=== PATIENT | male | born 1955 | race Caucasian/White ===

== ENCOUNTER 2021-01-11 15:31 | Emergency (ER) | payer OTHER, MEDICARE ==
[~2021-01-11] VITALS: Ht 172.7 cm; Wt 99.8 kg
--- NOTE | 2021-01-12 18:55 | EKG ---
[facility] [address] [facility] [place] [address] Signed Normal sinus rhythm Possible Anterior infarct , age undetermined Abnormal ECG Confirmed by GRICELDA AGUILERA MD ([id number]) on 01/12/2021 6:55:42 PM Electronically Signed By: GRICELDA AGUILERA MD 01/12/211854 PATIENT NAME: FLY BYRD Electrocardiogram DATE OF : 55 PHYSICIAN: GRICELDA AGUILERA MD REPORT #: [id number] REPORT IS CONFIDENTIAL AND NOT TO BE RELEASED WITHOUT AUTHORIZATION
== END 2021-01-11 18:08 | disposition home or self-care (01) ==
LOC: ED 15:31
DX: R07.89 Other chest pain (principal); M54.12 Radiculopathy, cervical region; J45.909 Unspecified asthma, uncomplicated; Z91.041 Radiographic dye allergy status
CPT/HCPCS: 71045; 80053; 83735; 84484; 85025; 85379; 93005; 93010; 99285-25

== ENCOUNTER 2022-04-10 14:44 | Emergency (ER) | payer OTHER, MEDICARE ==
[~2022-04-10] VITALS: Ht 172.7 cm; Wt 107.5 kg
[2022-04-10] MEDS ORDERED: GABAPENTIN100 MG PO (15:45)
--- NOTE | 2022-04-10 18:45 | EKG ---
[facility] [address] [facility] [place] [address] Signed Normal sinus rhythm Low voltage QRS Abnormal QRS-T angle, consider primary T wave abnormality Abnormal ECG When compared with ECG of 11-JAN-2021 15:40, T wave amplitude has decreased in Inferior leads Confirmed by GRICELDA AGUILERA MD ([id number]) on 04/10/2022 6:45:40 PM Electronically Signed By: GRICELDA AGUILERA MD 04/10/22 1845 PATIENT NAME: FLY BYRD Electrocardiogram DATE OF : 55 PHYSICIAN: GRICELDA AGUILERA MD REPORT #: [id number] REPORT IS CONFIDENTIAL AND NOT TO BE RELEASED WITHOUT AUTHORIZATION
== END 2022-04-10 16:45 | disposition home or self-care (01) ==
LOC: ED 14:44
DX: R00.2 Palpitations (principal); J45.909 Unspecified asthma, uncomplicated; Z91.041 Radiographic dye allergy status
CPT/HCPCS: 93005; 93010; 99284-25

== ENCOUNTER 2024-02-11 13:52 | Emergency (ER) | payer OTHER ==
[~2024-02-11] VITALS: Ht 172.7 cm; Wt 110.0 kg
[~2024-02-11 13:52] MED LIST: GABAPENTIN100 MG PO
[2024-02-11] MEDS ORDERED: TADALAFIL20 MG PO (16:31)
[2024-02-11] MEDS ORDERED: SODIUM CHLORIDE 0.9% 1,000 ML IV ONE (17:15)
[2024-02-11] MEDS ORDERED: ondansetron HCL 4 MG/2 ML VIAL IV ONE (17:15)
[2024-02-11] MEDS ORDERED: HYDROmorphone HCL 1 MG/ML SYR IV ONE (17:15)
[2024-02-11 17:26] LABS: BASOPHILS 0.5 % (0-2); EOSINOPHILS 1.2 % (0-6); HEMATOCRIT 42.7 % (35.0-50.0); HEMOGLOBIN 14.5 g/dL (12.0-18.0); LYMPHOCYTES 22.5 % (24-44); MCH 31.4 (27-36); MCHC 34.1 g/dl (30-36); MCV 92.2 fl (81-99); MONOCYTES 7.9 % (0-12); NEUTROPHILS 67.9 % (39-80); PLATELET COUNT 241 K/uL (140-440); RBC 4.63 M/ul (4.3-5.7); RDW 13.2 (10.5-15.0)
[2024-02-11 17:34] LABS: BILIRUBIN, URINE NEGATIVE (negative); BLOOD/HGB, URINE NEGATIVE (Negative); KETONE, URINE NEGATIVE (Negative); LEUK ESTERASE, URINE NEGATIVE (negative); NITRITE, URINE NEGATIVE (negative)
[2024-02-11 17:37] LABS: INR 1.08 (0.80-1.30); PROTIME 13.3 Sec (11.2-14.2)
[2024-02-11 17:41] LABS: ALBUMIN 3.5 g/dL (3.4-5.0); ALBUMIN/GLOBULIN RATIO 0.88 (1.1-2.4); ANION GAP 12.1 (7-21); BILIRUBIN, TOTAL 0.9 ng/dL (0.2-1.0); BUN/CREATININE RATIO 10.86 (6.0-28.6); CREATININE, SERUM 0.92 mg/dL (0.70-1.30); POTASSIUM 4.1 mmol/L (3.5-5.1); PROTEIN, TOTAL 7.5 g/dL (6.4-8.2)
[2024-02-11] MEDS ORDERED: HYDROCODON-ACE1 EA10 PO (19:23)
[2024-02-11] MEDS ORDERED: HYDROCODONE BIT/ACETAMINOPHEN 5/325 MG 1 TAB HOME.PACK PO ONE (19:45)
[2024-02-11 19:48] VITALS: BP 156/84
--- NOTE | 2024-02-12 11:46 | EKG ---
[facility] [address] [facility] [place] [address] Signed Sinus bradycardia Otherwise normal ECG When compared with ECG of 10-APR-2022 14:47, Nonspecific T wave abnormality no longer evident in Lateral leads Confirmed by Judy Troy ([id number]) on 02/12/2024 11:45:40 AM Electronically Signed By: JUDY TROY MD 02/12/24 1146 PATIENT NAME: FLY BYRD Electrocardiogram DATE OF : 55 PHYSICIAN: JUDY TROY MD REPORT #: [id number] REPORT IS CONFIDENTIAL AND NOT TO BE RELEASED WITHOUT AUTHORIZATION
== END 2024-02-11 19:57 | disposition home or self-care (01) ==
LOC: ED 13:52
PROVIDERS: Emergency Medicine
DX: S22.20XA Unspecified fracture of sternum, initial encounter for closed fracture (principal); S50.12XA Contusion of left forearm, initial encounter; S80.12XA Contusion of left lower leg, initial encounter; V43.54XA Car driver injured in collision with van in traffic accident, initial encounter; Z91.041 Radiographic dye allergy status; Z79.899 Other long term (current) drug therapy
CPT/HCPCS: 36415; 71250; 73560; 74176; 80053; 81003; 83690; 84484; 85025; 85610; 85730; 93005; 93010; 96374; 96375; 99284-25; A9270; J1170; J2405; J7030

== ENCOUNTER 2024-03-29 06:21 | Day surgery (SDC) | payer OTHER ==
[~2024-03-29] VITALS: Ht 172.7 cm; Wt 115.0 kg
[~2024-03-29 06:21] MED LIST changes: +GABAPENTIN ER300 MG PO; +HYDROCODON-ACE1 EA10 PO; +MIDAZOLAM HCL 5 MG/5 ML VIAL IV PRN; +PRILOSEC OTC20 MG PO; +TADALAFIL20 MG PO; +fentaNYL citrate 100 MCG/2 ML VIAL IV PRN
[2024-03-29 06:34] VITALS: BP 149/88
[2024-03-29] MEDS ORDERED: ASPIRIN81 MG PO (06:39)
[2024-03-29] MEDS ORDERED: LACTATED RINGER'S 1,000 ML IV SCH (07:00)
[2024-03-29] MEDS ORDERED: LIDOCAINE HCL 1% 5 ML SDV INJ ONE (07:00)
[2024-03-29] MEDS ORDERED: IBLOOD GLUCOSE TEST STRIP 1 EA TEST VI PRN (07:00)
[2024-03-29] MEDS ORDERED: fentaNYL citrate 100 MCG/2 ML VIAL ONE (07:14)
[2024-03-29] MEDS ORDERED: MIDAZOLAM HCL 5 MG/5 ML VIAL ONE (07:14)
--- NOTE | 2024-03-29 07:18 | NUR ---
VISITED DURING SPIRITUAL CARE ROUNDS. PT IN GOOD SPIRITS, NO SIGNS OF ANXIETY PRESENT. SALVAGE ENGINEER PROVIDED SUPPORTIVE PRESENCE, HOSPITALITY, PRAYER, FACILITATED INTERACTION WITH THERAPY ANIMAL. PT EXPRESSED GRATITUDE.
--- NOTE | 2024-03-29 07:59 | NUR ---
03/29/24 0759 GOYO MELISSA 0749 PT ARRIVED TO PACU VIA STRECHER. REPORT TAKEN FROM CINTIA SLADE. PT BREATHING EQUAL AND UNLBAORED. PT ON 2L OF OXYGEN VIA NASAL CANULLA. PT ABLE TO ANSWER QUESTIONS AND PT REPORTS NOT BEING IN PAIN. ALL MONITORS ATTACHED. PT RESTING WITH EYES CLOSED.
[2024-03-29 08:28] VITALS: BP 159/85
--- NOTE | 2024-03-29 09:56 | OR ---
[facility] [address] [place], [place] [address] Signed DATE OF OPERATION: 03/29/2024 SURGEON: Monty Valentino MD PREOPERATIVE DIAGNOSES: 1. Personal history of colonic polyps at age 40 in 1995. 2. Hemorrhoids. 3. Diverticulosis. POSTOPERATIVE DIAGNOSES: 1. 5 mm sessile polypoid lesion at 80 cm (left colon). 2. Minimal sigmoid diverticulosis. 3. Rqyuapk-ad-hzqyumwl internal and external hemorrhoids. PROCEDURE: Colonoscopy with hot biopsy. ESTIMATED BLOOD LOSS: None. INDICATIONS: Fly is a 68-year-old gentleman, asked to see me for a followup colonoscopy. He started colonoscopies at the age of 40. He said he had polyps removed on his very first colonoscopy in 1995. However, he has had no polyps since that time. He talks about hemorrhoids. He is fairly certain he has diverticulosis. He has no family history of colon cancer or polyps. He had lived in the [place] area for many years and now moved out to [place], [place]. He also went and had a cardiac evaluation recently, which we reviewed and he did very well. He said he has no lower GI complaints. In the office, I gave him a pamphlet on colonoscopy. We had reviewed the nature of the test. There is risk including, but not limited to gas bloating, crampy abdominal pain, bleeding, perforation requiring surgery, and missed diagnosis. We also reviewed the need for IV conscious sedation. He had expressed understanding and wished to proceed. PROCEDURE IN DETAIL: Fly was taken into our endoscopy suite and placed in the left lateral decubitus position. He used 5 mg of Versed and 100 mcg of fentanyl. He was awake a couple of times during the procedure, so we paused and gave him a little additional sedation. A digital rectal exam was performed. He does have some external hemorrhoid tissue. He had good sphincter tone. There were no masses. The adult colonoscope had been introduced and advanced under direct visualization of camera into the cecum itself. His Electronically Signed By: MONTY VALENTINO MD 03/29/24 0956 PATIENT NAME: FLY BYRD OPERATIVE REPORT DATE OF : 55 REPORT #: [id number] PHYSICIAN: MONTY VALENTINO MD PCP: DEVANTE LANTIGUA MD REPORT IS CONFIDENTIAL AND NOT TO BE RELEASED WITHOUT AUTHORIZATION [facility] [address] [place], [place] [address] Signed prep was quite good. We could easily see the appendiceal orifice and ileocecal valve. The scope was slowly withdrawn. At 80 cm, he had a sessile polypoid lesion that did not have the classic yellow discoloration. We turned on our narrow band imaging and it did not appear to be a polyp either. With just two bites of the hot biopsy forceps. We destroyed that lesion completely and sent off that tissue for pathologic review. He does have some diverticula in the sigmoid colon. They were moderate in size, few in number and scattered about. The rectum was unremarkable. Upon retroflexion of scope he does have minimal to moderate internal hemorrhoid columns. After this, the gas was suctioned out and colonoscope removed. Fly tolerated the procedure quite well. RECOMMENDATIONS: I will see Fly back in my office in 7 to 14 days to review his results. Based on his personal history of colonic polyps it looks like he will be on the five year plan. MD MAILE Mishra/MODL /[id number] cc: MD Devante Msihra MD Copies: MONTY VALENTINO MD, DELWYN MD ~ Electronically Signed By: MONTY VALENTINO MD 03/29/24 0956 PATIENT NAME: FLY BYRD OPERATIVE REPORT DATE OF : 55 REPORT #: [id number] PHYSICIAN: MONTY VALENTINO MD PCP: DEVANTE LANTIGUA MD REPORT IS CONFIDENTIAL AND NOT TO BE RELEASED WITHOUT AUTHORIZATION
== END 2024-03-29 08:37 | disposition home or self-care (01) ==
LOC: DS 06:21
PROVIDERS: ATTEND Colon & Rectal Surgery
PROC: 0DBM8ZX Excision of Descending Colon, Via Natural or Artificial Opening Endoscopic, Diagnostic (ICD-10-PCS; principal; 2024-03-29 07:30)
DX: Z12.11 Encounter for screening for malignant neoplasm of colon (principal); K63.5 Polyp of colon; K57.30 Diverticulosis of large intestine without perforation or abscess without bleeding; K64.4 Residual hemorrhoidal skin tags; K64.8 Other hemorrhoids; K21.9 Gastro-esophageal reflux disease without esophagitis; G43.909 Migraine, unspecified, not intractable, without status migrainosus; E66.9 Obesity, unspecified; Z68.38 Body mass index [BMI] 38.0-38.9, adult; Z86.0100 Personal history of colon polyps, unspecified; Z79.899 Other long term (current) drug therapy; Z88.5 Allergy status to narcotic agent; Z91.030 Bee allergy status; Z91.041 Radiographic dye allergy status
CPT/HCPCS: 88305; 99153; G0500; J2250; J3010; J7121

== ENCOUNTER 2024-04-17 16:47 | Emergency (ER) | payer OTHER ==
[~2024-04-17] VITALS: Ht 172.7 cm; Wt 113.9 kg
[~2024-04-17 16:47] MED LIST changes: +ASPIRIN81 MG PO; -MIDAZOLAM HCL 5 MG/5 ML VIAL IV PRN; -fentaNYL citrate 100 MCG/2 ML VIAL IV PRN
[2024-04-17] MEDS ORDERED: CYCLOBENZAPRINE10 MG PO (20:18)
[2024-04-17 20:47] VITALS: BP 137/83
== END 2024-04-17 20:49 | disposition home or self-care (01) ==
LOC: ED 16:47
DX: M79.662 Pain in left lower leg (principal); Z88.5 Allergy status to narcotic agent; Z91.030 Bee allergy status; Z91.041 Radiographic dye allergy status
CPT/HCPCS: 36415; 85379; 99283